=== PATIENT | male | born 1930 | race Caucasian/White ===

== ENCOUNTER 2020-04-27 09:31 | Emergency (ER) | payer OTHER, SELFPAY ==
[2020-04-27] MEDS ORDERED: NA CHLORIDE 0.9% 500 ML ONE (09:56)
[2020-04-27 10:24] LABS: Basophils % 1.1 % (0-1.3); Hematocrit 34.7 % (39.6-49.0); Lymphocytes % 34.7 % (15.3-44.8); MPV 11.9 fL (7.6-11.3); RBC Red Blood Cell Count 3.19 M/uL (4.33-5.43)
[2020-04-27 10:29] LABS: Protime INR 1.03
[2020-04-27 10:38] LABS: Albumin 3.2 g/dL (3.4-5.0); Bilirubin Direct 0.2 mg/dL (0-0.2); Bilirubin Total 0.4 mg/dL (0.2-1.0); Potassium 3.8 mmol/L (3.5-5.1)
[2020-04-27 11:02] LABS: Blood Morphology Comment NOTED (NOT SEEN); Macrocytosis 1+; Platelet Estimate ADEQ; Urine White Blood Cell Casts OK
--- NOTE | 2020-04-27 11:35 | RAD REPORT ---
EXAM DESCRIPTION: CT - Abdomen Pelvis Wo Contrast - 04/27/2020 11:11 am CLINICAL HISTORY: Hematuria;Abd pain COMPARISON: No comparisons TECHNIQUE: Axial [address] imaging of the abdomen and pelvis was performed without IV contrast. No IV contrast was given because of allergy, abnormal renal function, patient refusal or physician re quest. No oral contrast administered. All CT scans are performed using dose optimization technique as appropriate and may include automated exposure control or mA/KV adjustment according to patient size. FINDINGS: Minimal loculated pleural effusion in the left base. Pleural calcifications are present. T here is a 14 millimeter calcified granuloma in the posterior gutter on the right base. No pericardial thickening or effusion. The liver, spleen and pancreas show no suspicious findings on non-contrast imaging. Cholecystectomy c lips are present. No biliary tree dilatation. Small accessory splenic nodules are present. No hydronephrosis identified. No obstructing or nonobstructing calculi. An exophytic 13 millimeter lo w-density mass posterior lower pole right kidney noted. An exophytic 21 millimeter mass is present la teral margin of the left kidney. No significant adrenal finding. Isodense renal masses and pyeloneph ritis cannot be excluded in the absence of IV contrast. Prostate gland is enlarged. There is a 10 x 6 x 6 centimeter area of hyper dense material within the lumen of the urinary bladder. This could all be hemorrhagic material. No defined bladder wall mass. No gastric dilatation or wall thickening. No dilated large or small bowel loops. Moderate stool volum e fills the entire colon. Diverticulosis in the left side colon is minimal. No free air, free fluid or inflammatory stranding. No hernia, mass or bulky lymphadenopathy. Disc and bony degenerative changes are present. Arterial tree calcifications seen. Respiratory motion degradation does limit detail on the study. IMPRESSION: Large 10 x 6 x 6 centimeter hyperdense focus in the posterior or dependent portion of th e urinary bladder. This is suspected to be hemorrhagic material. A mass could be masked. No renal abnormality seen as a source for hematuria. Isodense masses and pyelonephritis are not exclu ded. The remainder the study, as detailed above, is without an acute process. If further assessment of the urinary bladder is needed, bladder sonography could be performed with th e patient in various positions to disperse or re-distribute hemorrhagic debris. Alternatively, CT yu ging could be repeated with the patient on his stomach. Full assessment is limited is the absence of IV contrast.
[2020-04-27] MEDS ORDERED: LIDOCAINE VISCOUS 2% SOLN 15 ML UDC ONE ×2 (12:22→13:40)
[2020-04-27] MEDS ORDERED: NACL 0.9% IRR SOLN 2,000 ML IRR ONE (12:22)
--- NOTE | 2020-04-27 15:09 | EDPHYS ---
Physician Documentation [facility] Name: Get Mcmullen Age: 89 yrs Sex: Male : 1930 Arrival Date: 04/27/2020 Time: 09:34 Bed 5 Private MD: ED Physician Bakari Salas HPI: 04/27 09:57 This 89 yrs old Male presents to ER via EMS with complaints of Urinary pm1 Problem. 09:57 The patient presents with urinary symptoms, hematuria and burning with urination. pm1 Onset: The symptoms/episode began/occurred at 00:00. Modifying factors: The symptoms are alleviated by nothing, the symptoms are aggravated by urinating. Associated signs and symptoms: Pertinent positives: suprapubic abdominal pain. Some bilateral flank pain that has resolved, Pertinent negatives: diarrhea, fever, nausea, vomiting. The patient has experienced a previous episode, many years ago, Hematuria. Historical: - Allergies: 09:39 Sulfa (Sulfonamide Antibiotics); ph 09:39 PENICILLINS; ph - PMHx: 09:39 Myocardial infarction; Hypertension; CHF; Diabetes - NIDDM; ph - Immunization history:: Adult Immunizations unknown. - Social history:: Smoking status: Patient denies any tobacco usage or history of. ROS: 09:57 Constitutional: Negative for fever, chills, and weight loss, Neck: Negative for injury, pm1 pain, and swelling, Cardiovascular: Negative for chest pain, palpitations, and edema, Respiratory: Negative for shortness of breath, cough, wheezing, and pleuritic chest pain. 09:57 Abdomen/GI: Positive for abdominal pain, of the suprapubic area, Negative for nausea, vomiting, and diarrhea, constipation. 09:57 MS/Extremity: Negative for injury and deformity, Skin: Negative for injury, rash, and pm1 discoloration, Neuro: Negative for headache, weakness, numbness, tingling, and seizure. 09:57 Back: Positive for flank pain, bilaterally, resolved. 09:57 : Positive for hematuria, burning with urination, difficulty urinating. Exam: 09:57 Constitutional: This is a well developed, well nourished patient who is awake, alert, pm1 and in no acute distress. Head/Face: Normocephalic, atraumatic. Chest/axilla: Normal chest wall appearance and motion. Nontender with no deformity. No lesions are appreciated. 09:57 Back: No spinal tenderness. No costovertebral tenderness. Full range of motion. Skin: Warm, dry with normal turgor. Normal color with no rashes, no lesions, and no evidence of cellulitis. MS/ Extremity: Pulses equal, no cyanosis. Neurovascular intact. Full, normal range of motion. 09:57 Cardiovascular: Exam negative for acute changes, Rate: normal, Rhythm: regular, Pulses: no pulse deficits are appreciated, Edema: is not appreciated. 09:57 Respiratory: Exam negative for acute changes, respiratory distress, shortness of breath. 09:57 Abdomen/GI: Inspection: abdomen appears normal, Palpation: abdomen is soft and non-tender, in all quadrants, mass, is not appreciated, rebound tenderness, is not appreciated. 09:57 Neuro: Exam negative for acute changes, Orientation: is normal, Mentation: is normal, Motor: is normal, moves all fours. Vital Signs: 09:34 BP 135 / 52; Pulse 68; Resp 18; Temp 97.8; Pulse Ox 99% on R/A; Weight 112.49 kg; ph Height 6 ft. 2 in. (187.96 cm); Pain 5/10; 10:39 BP 147 / 49; Pulse 65; Resp 18; Pulse Ox 100% on R/A; em 12:00 BP 145 / 51; Pulse 72; Resp 18; Pulse Ox 99% on R/A; em 13:33 BP 160 / 60; Pulse 78; Resp 20; Pulse Ox 99% on R/A; em 14:33 BP 163 / 67; Pulse 81; Resp 16; Pulse Ox 99% on R/A; em 15:10 BP 144 / 68; Pulse 79; Resp 16; Pulse Ox 99% on R/A; em 16:38 BP 147 / 59; Pulse 75; Resp 18; Pulse Ox 98% on R/A; em 17:52 BP 151 / 47; Pulse 80; Resp 16; Pulse Ox 98% on R/A; em 18:48 BP 143 / 49; Pulse 67; Resp 14; Pulse Ox 99% on R/A; em 19:30 BP 156 / 59; Pulse 66; Resp 16; Temp 97.1(TE); Pulse Ox 96% on R/A; jb4 09:34 Body Mass Index 31.84 (112.49 kg, 187.96 cm) ph MDM: 09:37 Patient medically screened. pm1 09:40 ED course: Patient reports pain 5/10 currently, but does not want any pain medications. pm1 Patient given bedside call cross and informed that I would like to give him pain medications if he changes his mind. 09:48 ED course: bladder scanner 210 mL. pm1 14:50 Physician consultation: Dre Gill MD was called at 14:03, was contacted at 14:50, pm1 regarding consult, patient's condition, after a discussion of the case, a recommendation for transfer for higher level of care is made, Informed unable to place a Kwok catheter after multiple attempts. Unable to get a urine sample. Possible UTI present. Currently held off on abx therapy until urine sample obtained. Recommendation for condom catheter. 14:59 Data reviewed: vital signs. Data interpreted: Pulse oximetry: on room air is 99 %. pm1 Interpretation: normal. 14:59 Counseling: I had a detailed discussion with the patient and/or guardian regarding: the pm1 need to transfer to another facility, [facility] does not immediately have the required specialist, No urologist, his urologist is unavailable due to recent hand surgery. 15:00 Counseling: I had a detailed discussion with the patient and/or guardian regarding: the pm1 need to transfer to another facility, Patient does not want to be transferred to [facility]. 16:47 Physician consultation: Urology Flakita with [facility]. Recommended pm1 transfer to a [facility] system where his dump motorman, Dr. Andrew practices. If the patient requires surgery he would like a physician that knows the patient and is able to provide cardiac clearance. He has an office next to Dr. Andrew at [facility] and recommends there as a possible transfer location. 17:10 Physician consultation: Froy Andrew was called at 17:10, was contacted at 17:10, pm1 Practices at [facility] only. Will gladly consult and would assist with finding a hospitalist to accept the patient and urology for consultation. 18:20 ED course: Urine sample obtained from condom catheter, will treat with antibiotics. pm1 18:36 Physician consultation: Hospitalist Sharon was contacted at 18:36, regarding regarding pm1 transfer, patient's condition, Accepting is Dr. Miner. 04/27 09:39 Order name: Basic Metabolic Panel; Complete Time: 10:46 pm1 04/27 09:39 Order name: CBC with Diff; Complete Time: 11:03 pm1 04/27 09:39 Order name: Hepatic Function; Complete Time: 10:46 pm1 04/27 09:39 Order name: Lipase; Complete Time: 10:46 pm1 04/27 09:39 Order name: PT-INR; Complete Time: 10:30 pm1 04/27 09:39 Order name: Ptt, Activated; Complete Time: 10:30 pm1 04/27 10:43 Order name: Abdomen ; Complete Time: 11:50 EDMS 04/27 11:02 Order name: CBC Smear Scan; Complete Time: 11:03 EDMS 04/27 18:26 Order name: Urine Culture pm1 04/27 18:36 Order name: UA: condom catheter collection; Complete Time: 09:20 eb 04/27 18:59 Order name: Urine Microscopic Only; Complete Time: 09:20 EDMS 04/27 09:39 Order name: Bladder Scanner; Complete Time: 10:05 pm1 04/27 09:39 Order name: IV Saline Lock; Complete Time: 10:05 pm1 04/27 09:39 Order name: Labs collected and sent; Complete Time: 10:05 pm1 04/27 12:06 Order name: Kwok-Hematuria; Complete Time: 19:13 pm1 04/27 15:18 Order name: Misc. Order: Condom catheter; Complete Time: 15:43 pm1 Administered Medications: 10:00 Drug: NS 0.9% 500 ml Volume: 500 ml; Route: IV; Rate: 1 bolus; Site: left forearm; em 10:56 Follow up: IV Status: Completed infusion; IV Intake: 500ml em 13:45 Drug: Lidocaine Gel 2 % 1 application Route: Mucous Membrane; em 18:45 Drug: Rocephin 1 grams Route: IV; Rate: calculated rate; Site: left forearm; em 19:00 Follow up: Response: No adverse reaction; IV Status: Completed infusion jb4 Disposition: 04/28 07:02 Co-signature as Attending Physician, Bakari Salas MD. rn Disposition: 04/27/20 15:08 Transfer ordered to [facility]. Diagnosis are Retention of urine, Hematuria, unspecified. - Reason for transfer: Specialty. - Accepting physician is [facility]. - Condition is Stable. - Problem is new. - Symptoms have improved. Signatures: Dispatcher [employer] [facility] Dionicio Zaidi, RN RN Bakari Lassiter MD MD rn Hall, Patricia, RN RN Zane Olvera, ANABELL ALUMINUM SIDING MECHANIC pm1 Janie De La Rosa mw2 Kings Toribio RN jb4 Corrections: (The following items were deleted from the chart) 04/27 10:43 09:40 Abdomen Pelvis W Con+CT.RAD.BRZ ordered. [facility] 16:54 16:47 Physician consultation: Urology Flakita with [facility]. pm1 Recommended transfer to a [facility] system where his dump motorman, Dr. Andrew practices. If the patient requires surgery he would like a physician that knows the patient and is able to provide cardiac clearance, pm1 18:45 09:41 UA MICROSCOPIC+U.LAB.BRZ ordered. [facility] 20:40 15:08 04/27/2020 15:08 Transfer ordered to [facility]. Diagnosis is Retention of mw2 urine; Hematuria, unspecified. Reason for transfer: Specialty. Accepting physician is [facility]. Condition is Stable. Problem is new. Symptoms have improved. pm1
--- NOTE | 2020-04-27 15:09 | ER ---
Nurse's Notes [facility] Name: Get Mcmullen Age: 89 yrs Sex: Male : 1930 Arrival Date: 04/27/2020 Time: 09:34 Bed 5 Private MD: Diagnosis: Retention of urine;Hematuria, unspecified Presentation: 04/27 09:34 Chief complaint: EMS states: Hematuria and difficulty urinating that started at approx ph midnight, pt reports pain in suprapubic area and pain w/ urination. Coronavirus screen: Patient denies a cough. Patient denies shortness of breath or difficulty breathing. Patient denies measured and/or subjective temperature greater than 100.4F prior to today's visit. Patient denies travel on a cruise ship or to a country the [facility] currently lists as an affected area. Patient denies contact with known and/or suspected case of COVID-19. Ebola Screen: No symptoms or risks identified at this time. Initial Sepsis Screen: Does the patient meet any 2 criteria? No. Patient's initial sepsis screen is negative. Does the patient have a suspected source of infection? No. Patient's initial sepsis screen is negative. Risk Assessment: Do you want to hurt yourself or someone else? Patient reports no desire to harm self or others. Onset of symptoms was April 27, 2020. 09:34 Method Of Arrival: EMS: [facility] ph 09:34 Acuity: JOYCE 3 ph Historical: - Allergies: 09:39 Sulfa (Sulfonamide Antibiotics); ph 09:39 PENICILLINS; ph - PMHx: 09:39 Myocardial infarction; Hypertension; CHF; Diabetes - NIDDM; ph - Immunization history:: Adult Immunizations unknown. - Social history:: Smoking status: Patient denies any tobacco usage or history of. Screenin:00 Abuse screen: Denies threats or abuse. Nutritional screening: No deficits noted. em Tuberculosis screening: No symptoms or risk factors identified. Fall Risk None identified. Assessment: 10:00 General: Appears in no apparent distress. comfortable, Behavior is calm, cooperative, em appropriate for age, Denies fever. Pain: Complains of pain in pelvis Pain currently is 5 out of 10 on a pain scale. Neuro: Level of Consciousness is awake, alert, obeys commands, Oriented to person, place, time, situation, Appropriate for age. Cardiovascular: Capillary refill < 3 seconds Patient's skin is warm and dry. Respiratory: Airway is patent Respiratory effort is even, unlabored, Respiratory pattern is regular, symmetrical. GI: Patient currently denies nausea, vomiting. : Reports burning with urination, reports blood in urine. Derm: Skin is intact, is fragile, is thin, Skin is pink, warm \T\ dry. Musculoskeletal: Capillary refill < 3 seconds, Range of motion: intact in all extremities. 10:39 Reassessment: Patient appears in no apparent distress at this time. Patient and/or em family updated on plan of care and expected duration. Pain level reassessed. Patient is alert, oriented x 3, equal unlabored respirations, skin warm/dry/pink. 12:45 Reassessment: Patient and/or family updated on plan of care and expected duration. Pain em level reassessed. Patient is alert, oriented x 3, equal unlabored respirations, skin warm/dry/pink. attempted to place Ho, unable to insert it all the way x 2, provider at bedside. 13:34 Reassessment: Patient appears in no apparent distress at this time. Patient and/or em family updated on plan of care and expected duration. Pain level reassessed. Patient is alert, oriented x 3, equal unlabored respirations, skin warm/dry/pink. 13:40 Reassessment: provider at bedside trying to insert ho. em 14:33 Reassessment: Patient appears in no apparent distress at this time. Patient and/or em family updated on plan of care and expected duration. Pain level reassessed. Patient is alert, oriented x 3, equal unlabored respirations, skin warm/dry/pink. 15:09 Reassessment: Patient appears in no apparent distress at this time. pt does not have a em ho, pt will be transferred. 15:43 Reassessment: applied condom cath. em 17:04 Reassessment: spoke with Santa () at [phone] and gave update on pt status, em pending transfer. 19:00 Reassessment: Patient appears in no apparent distress at this time. Patient and/or jb4 family updated on plan of care and expected duration. Pain level reassessed. Pt is resting in bed with eyes closed, respirations are even and unlabored with not s/s of pain or distress noted. Yosi red blood in noted in the catheter line. 20:00 Reassessment: Patient appears in no apparent distress at this time. Patient and/or jb4 family updated on plan of care and expected duration. Pain level reassessed. Patient is alert, oriented x 3, equal unlabored respirations, skin warm/dry/pink. 20:15 Reassessment: attempted to call report to receiving facility, no answer. jb4 20:30 Reassessment: Patient appears in no apparent distress at this time. Patient and/or jb4 family updated on plan of care and expected duration. Pain level reassessed. Patient is alert, oriented x 3, equal unlabored respirations, skin warm/dry/pink. report given to EMS, Pt assisted with elizabeth care. Vital Signs: 09:34 BP 135 / 52; Pulse 68; Resp 18; Temp 97.8; Pulse Ox 99% on R/A; Weight 112.49 kg; ph Height 6 ft. 2 in. (187.96 cm); Pain 5/10; 10:39 BP 147 / 49; Pulse 65; Resp 18; Pulse Ox 100% on R/A; em 12:00 BP 145 / 51; Pulse 72; Resp 18; Pulse Ox 99% on R/A; em 13:33 BP 160 / 60; Pulse 78; Resp 20; Pulse Ox 99% on R/A; em 14:33 BP 163 / 67; Pulse 81; Resp 16; Pulse Ox 99% on R/A; em 15:10 BP 144 / 68; Pulse 79; Resp 16; Pulse Ox 99% on R/A; em 16:38 BP 147 / 59; Pulse 75; Resp 18; Pulse Ox 98% on R/A; em 17:52 BP 151 / 47; Pulse 80; Resp 16; Pulse Ox 98% on R/A; em 18:48 BP 143 / 49; Pulse 67; Resp 14; Pulse Ox 99% on R/A; em 19:30 BP 156 / 59; Pulse 66; Resp 16; Temp 97.1(TE); Pulse Ox 96% on R/A; jb4 09:34 Body Mass Index 31.84 (112.49 kg, 187.96 cm) ph ED Course: 09:34 Patient arrived in ED. ph 09:37 Triage completed. ph 09:37 Zane Hummel NP is PHCP. pm1 09:37 Bakari Salas MD is Attending Physician. pm1 09:39 Arm band placed on Patient placed in an exam room, on a stretcher. ph 09:44 Dionicio Zaidi RN is Primary Nurse. em 09:48 Bladder scan completed. 210 mL. ph 10:00 Patient has correct armband on for positive identification. Bed in low position. Call em light in reach. Side rails up X2. Pulse ox on. NIBP on. 10:00 Initial lab(s) drawn, by me, sent to lab. Inserted saline lock: 20 gauge in left em forearm, using aseptic technique. Blood collected. 11:12 Abdomen In Process Unspecified. EDMS 11:12 CT completed. Patient moved back from CT. bq 15:00 attempted to initiate a transfer with [facility] with no answer/ and placed on hold for eb half an hour with no answer. 15:37 initiated a transfer with Mena from the [facility]. eb 16:[address] Boggs the Urologist business analyst sales operations for [facility] with Zane chinchilla Np for patient transfer consultation. 16:43 Dr. Boggs the Urologist from [place] would prefer that we attempt to transfer the eb patient to [facility] where the patient's closing supervisor's office is near there. 16:50 initiated a transfer with Valeri LoveWeight And Test Bar Clerk from the [facility]. 17:00 cancelled transfer at [facility]. patient's closing supervisor Dr. Kamran chinchilla wants the patient at [facility]. 17:13 transfer initiated with Jimenez from [facility]/. eb 18:17 per Jimenez at the [facility] they are waiting for the doctor to return eb the page. 18:[address] Humphries the hospitalist business analyst sales operations for [facility] with Dr. Salas for eb patient transfer consultation. 18:41 administrative approval given by Jane Abdullahi / patient has been accepted to [facility] pending a bed/ she will call back with a room assignment once she receives a fax of the facesheet / faxed over facesheet to [phone]. 19:12 Primary Nurse role handed off by Dionicio Zaidi, IVAN jb4 19:12 Kings Toribio, RN is Primary Nurse. jb4 19:42 called Jane back at [facility]. Pt will be going to [address] Miner. 20:30 No provider procedures requiring assistance completed. Patient transferred, IV remains jb4 in place. Administered Medications: 10:00 Drug: NS 0.9% 500 ml Volume: 500 ml; Route: IV; Rate: 1 bolus; Site: left forearm; em 10:56 Follow up: IV Status: Completed infusion; IV Intake: 500ml em 13:45 Drug: Lidocaine Gel 2 % 1 application Route: Mucous Membrane; em 18:45 Drug: Rocephin 1 grams Route: IV; Rate: calculated rate; Site: left forearm; em 19:00 Follow up: Response: No adverse reaction; IV Status: Completed infusion jb4 Intake: 10:56 IV: 500ml; Total: 500ml. em Outcome: 15:08 ER care complete, transfer ordered by MD. pm1 20:30 Transferred by ground EMS by private ambulance EMS. to [facility]. jb4 20:30 Condition: stable 20:30 Discharge instructions given to patient, Instructed on the need for transfer, Demonstrated understanding of instructions. 20:40 Patient left the ED. mw2 Signatures: Dispatcher [employer] EDBernice Vitale Dionicio Zaidi, IVAN RN Caroline Bazzi RN RN Zane Hummel, ANABELL ADMINISTRATOR pm1 Kings Toribio, IVAN LOVE jb Janie De La Rosa 2 Mary Kay Rubin Corrections: (The following items were deleted from the chart) 16:58 16:[address] Boggs the Urologist from [place] would prefer that we attempt to eb transfer the patient to [facility] where the patient's closing supervisor's office is near there. eb 17:22 17:00 cancelled transfer at [facility]. eb eb 20:02 19:30 BP 156 / 59; Pulse 66bpm; Resp 16bpm; Pulse Ox 96% RA; jb4 jb4
[2020-04-27] MEDS ORDERED: CEFTRIAXONE/SWI 1gm 1 GM/10 ML SYR ONE (18:51)
[2020-04-27 18:55] LABS: Urine Appearance TURBID; Urine Bilirubin NEGATIVE (NEG); Urine Blood 3+ (NEG); Urine Color RED; Urine Glucose NEGATIVE (NEG); Urine Protein 3+ (NEG); Urine Urobilinogen 0.2 mg/dL (0.2-1.0)
[2020-04-27 18:57] LABS: Urine Microscopic Reflex ORDER UMIC
[2020-04-27 19:01] LABS: Urine Bacteria 20-50 /HPF (NONE SEEN); Urine Culture Reflex Order NOT NEEDED; Urine Mucus 2+ /HPF (NONE SEEN); Urine RBC LOADED /HPF (NONE SEEN)
[2020-04-27 20:58] VITALS: BP 156/59; TEMP 97.1; O2SAT 96
== END 2020-04-27 20:40 | disposition short-term general hospital (02) ==
LOC: EDBD 09:31 → ER 09:31
DX: R33.9 Retention of urine, unspecified (principal); I10 Essential (primary) hypertension; Z88.0 Allergy status to penicillin; Z88.2 Allergy status to sulfonamides
CPT/HCPCS: 96361; 87088; 85025; 87086; 80048; 36415; 85610; 80076; 85730; 87077; 87186; 83690; 74176; 96374; 99285; J0696; J7040; 81003; 81015